=== PATIENT | male | born 1955 | race Caucasian/White ===

== ENCOUNTER 2016-10-27 20:28 | Emergency (ER) | payer MEDICAID ==
[~2016-10-27] VITALS: Ht 185.4 cm; Wt 108.9 kg
[2016-10-27 20:44] VITALS: BP_SYST 142
[2016-10-27] MEDS ORDERED: RISP1TAB PO (20:50)
[2016-10-27] MEDS ORDERED: HYDR-2489 PO (20:51)
[2016-10-27] MEDS ORDERED: VENL150C53 PO (20:51)
[2016-10-28] MEDS ORDERED: HYDROcodone/ACETAMIN 5-325 MG TAB (NORCO/ VICODIN) PO ONE (00:45)
[2016-10-28 01:08] VITALS: BP_SYST 136
== END 2016-10-28 01:08 | disposition home or self-care (01) ==
LOC: SED 20:28
DX: S61.307A Unspecified open wound of left little finger with damage to nail, initial encounter (principal); J45.909 Unspecified asthma, uncomplicated; I25.2 Old myocardial infarction; Z86.79 Personal history of other diseases of the circulatory system; W26.8XXA Contact with other sharp object(s), not elsewhere classified, initial encounter; Y93.89 Activity, other specified; Y92.89 Other specified places as the place of occurrence of the external cause; Y99.8 Other external cause status
CPT/HCPCS: 99283

== ENCOUNTER 2017-05-09 12:18 | Emergency (ER) | payer MEDICAID ==
[~2017-05-09] VITALS: Ht 185.4 cm; Wt 115.7 kg
[~2017-05-09 12:18] MED LIST: HYDR-2489 PO; RISP1TAB PO; VENL150C53 PO
[2017-05-09 12:29] VITALS: BP_SYST 141
[2017-05-09 14:56] VITALS: BP_SYST 140
== END 2017-05-09 14:56 | disposition home or self-care (01) ==
LOC: SED 12:18
DX: H53.8 Other visual disturbances (principal); J45.909 Unspecified asthma, uncomplicated
CPT/HCPCS: 70450-TC; 70480; 99284

== ENCOUNTER 2018-04-10 19:19 | Emergency (ER) | payer MEDICAID ==
[~2018-04-10] VITALS: Ht 185.4 cm; Wt 113.4 kg
[2018-04-10 19:40] VITALS: BP_SYST 137
[2018-04-10] MEDS ORDERED: MORPHINE 4 MG/ML INJ. SYRINGE IM ONE (20:30)
[2018-04-10] MEDS ORDERED: LORazepam 2 MG/ML VIAL (FOR ER USE) IM ONE (20:30)
[2018-04-10 21:38] VITALS: BP_SYST 130
== END 2018-04-10 21:38 | disposition home or self-care (01) ==
LOC: SED 19:19
DX: G89.29 Other chronic pain (principal); M54.5 Low back pain; J45.909 Unspecified asthma, uncomplicated; I25.2 Old myocardial infarction; Z79.899 Other long term (current) drug therapy
CPT/HCPCS: 96372; 99283; J2060; J2270

== ENCOUNTER 2018-08-01 16:59 | Emergency (ER) | payer MEDICAID ==
[~2018-08-01] VITALS: Ht 185.4 cm; Wt 122.5 kg
[~2018-08-01 16:59] MED LIST changes: -HYDR-2489 PO; +HYDR-4274 PO
[2018-08-01 17:10] VITALS: BP_SYST 129
[2018-08-01] MEDS ORDERED: NACL 0.9% 1,000 ML IV ONE (19:15)
[2018-08-01 19:41] LABS: BASOPHILS % (AUTO) 0.5 % (0.0-2.0); EOSINOPHILS # (AUTO) 0.2 K/uL (0.0-0.4); EOSINOPHILS % (AUTO) 2.1 % (0.0-4.0); HEMATOCRIT 46.6 % (36-54); HEMOGLOBIN 15.9 g/dL (14.0-18.0); LYMPHOCYTES # (AUTO) 2.3 K/uL (1.0-5.5); LYMPHOCYTES % (AUTO) 30.4 % (20.5-51.5); MEAN CORPUSCULAR HEMOGLOBIN 32 pg (27-31); MEAN CORPUSCULAR HGB CONC 34 % (32-36); MEAN CORPUSCULAR VOLUME 94 fL (79.0-98.0); MONOCYTES # (AUTO) 0.5 K/uL (0.0-1.0); NEUTROPHILS # (AUTO) 4.5 K/uL (1.8-7.7); PLATELET COUNT (AUTO) 349 K/uL (130-430); RED BLOOD CELL COUNT(AUTO) 4.97 MIL/uL (4.2-6.2); RED CELL DISTRIBUTION WIDTH 13.8 % (9.0-15.0); WHITE BLOOD COUNT (AUTO) 7.5 K/uL (4.8-10.8)
[2018-08-01 20:06] LABS: CALCIUM 9.6 mg/dL (8.4-11.0); CREATININE 1.11 mg/dL (0.55-1.30)
[2018-08-01 20:12] LABS: ALBUMIN 3.9 g/dL (3.4-4.8); TOTAL BILIRUBIN 0.7 mg/dL (0.0-1.0)
[2018-08-01 22:56] VITALS: BP_SYST 129
== END 2018-08-01 22:58 | disposition home or self-care (01) ==
LOC: SED 16:59
DX: M65.841 Other synovitis and tenosynovitis, right hand (principal); I25.2 Old myocardial infarction; R03.0 Elevated blood-pressure reading, without diagnosis of hypertension; J45.909 Unspecified asthma, uncomplicated; Z79.899 Other long term (current) drug therapy
CPT/HCPCS: 36415; 73140-TC; 80053; 83605; 85025; 87040-TC; 99284

== ENCOUNTER 2019-11-02 12:55 | Emergency (ER) | payer MEDICAID ==
[~2019-11-02] VITALS: Ht 185.4 cm; Wt 117.9 kg
[2019-11-02 13:06] VITALS: BP_SYST 129
[2019-11-02] MEDS ORDERED: IPRATROPIUM/ALBUTEROL SULFATE 3 ML AMPUL.NEB (DUONEB) INH ONE (13:30)
[2019-11-02] MEDS ORDERED: GENTAMICIN SULFATE 0.3%, 3.5 GM EYE OINT. OP ONE (13:45)
[2019-11-02 14:04] VITALS: BP_SYST 129
== END 2019-11-02 14:05 | disposition home or self-care (01) ==
LOC: SED 12:55
DX: T15.92XA Foreign body on external eye, part unspecified, left eye, initial encounter (principal); J40 Bronchitis, not specified as acute or chronic; Z87.891 Personal history of nicotine dependence; X58.XXXA Exposure to other specified factors, initial encounter; Y93.89 Activity, other specified; Y92.89 Other specified places as the place of occurrence of the external cause; Y99.8 Other external cause status
CPT/HCPCS: 94640; 99284

== ENCOUNTER 2021-09-29 12:56 | Emergency (ER) | payer MEDICAID ==
[~2021-09-29] VITALS: Ht 185.4 cm; Wt 122.5 kg
[~2021-09-29 12:56] MED LIST changes: -RISP1TAB PO; +RISP1TAB45 PO
[2021-09-29 13:03] VITALS: BP_SYST 148
--- NOTE | 2021-09-29 13:11 | NUR ---
Patient to ER bed 08 to gown for evaluation. Side rails up.
--- NOTE | 2021-09-29 13:16 | NUR ---
Assumed care of pt who came from home c/o severe abd pain 12/13 that started two days ago. He has been unable to eat or drink d/t n/v. Patient denies fever and diarrhea. Pt has a hx of COPD and wheezing is audible. Pt is calm and cooperative. BP, HR and RR are elevated but patient appears in no acute distress at this time. Will continue to monitor and deliver care as ordered.
--- NOTE | 2021-09-29 13:20 | NUR ---
Dr Sprague evaluating patient at bedside
[2021-09-29] MEDS ORDERED: valACYclovir HCL 500 MG TABLET PO SCH (14:15)
[2021-09-29] MEDS ORDERED: ALBUTEROL SULFATE 0.083% 2.5 MG/3 ML VIAL.NEB INH ONE (14:15)
[2021-09-29] MEDS ORDERED: ONDANSETRON 4 MG ODT TAB PO ONE (14:15)
[2021-09-29] MEDS ORDERED: HYDROmorphone 1 MG/ML INJ. CARTRIDGE IM ONE (14:15)
[2021-09-29] MEDS ORDERED: predniSONE 20 MG TABLET PO ONE (14:15)
[2021-09-29] MEDS ORDERED: VALA10002 PO (14:18)
[2021-09-29] MEDS ORDERED: PRED20TA PO (14:18)
[2021-09-29] MEDS ORDERED: OXYC-128 PO (14:21)
[2021-09-29] MEDS ORDERED: ONDA-8 TL (14:23)
[2021-09-29 14:56] VITALS: BP_SYST 148
--- NOTE | 2021-09-29 14:58 | NUR ---
Patient given written and verbal discharge instructions and verbalizes understanding. ER MD discussed with patient the results and treatment provided. Patient in stable condition. ID arm band removed. Rx of oxycodone, Valtrex, zofran given. Patient educated on pain management and to follow up with PMD. Pain Scale 3/10 . Opportunity for questions provided and answered. Medication side effect fact sheet provided.
== END 2021-09-29 14:58 | disposition home or self-care (01) ==
LOC: SED 12:56
DX: M54.17 Radiculopathy, lumbosacral region (principal); J44.1 Chronic obstructive pulmonary disease with (acute) exacerbation; R11.2 Nausea with vomiting, unspecified
CPT/HCPCS: 94640; 94760; 99284; 96372; Q0162; J7512; J1170; J7613

== ENCOUNTER 2022-07-17 13:28 | Emergency (ER) | payer MEDICARE, MEDICAID ==
[~2022-07-17] VITALS: Ht 185.4 cm; Wt 122.5 kg
[~2022-07-17 13:28] MED LIST changes: +ONDA-8 TL; +OXYC-128 PO; +PRED20TA PO; +VALA10002 PO
[2022-07-17 13:42] VITALS: BP_SYST 106
[2022-07-17] MEDS ORDERED: IPRATROPIUM/ALBUTEROL SULFATE 3 ML AMPUL.NEB (DUONEB) INH ONE ×2 (14:00→16:15)
[2022-07-17] MEDS ORDERED: predniSONE 20 MG TABLET PO ONE (14:15)
[2022-07-17] MEDS ORDERED: IBUPROFEN 800 MG TABLET PO ONE (16:15)
[2022-07-17] MEDS ORDERED: ALBMDI INH (16:16)
[2022-07-17] MEDS ORDERED: IBUP-1971 PO (16:16)
[2022-07-17] MEDS ORDERED: PRED20TA PO (16:16)
[2022-07-17 16:26] VITALS: BP_SYST 105
== END 2022-07-17 16:33 | disposition home or self-care (01) ==
LOC: SED 13:28
DX: J44.1 Chronic obstructive pulmonary disease with (acute) exacerbation (principal); R06.02 Shortness of breath; M79.89 Other specified soft tissue disorders; R07.9 Chest pain, unspecified; Z79.899 Other long term (current) drug therapy
CPT/HCPCS: 71045; 93971; 94640; 99284